=== PATIENT | female | born 1955 | race Caucasian/White ===

== ENCOUNTER 2017-09-03 11:39 | Emergency (ER) | payer OTHER ==
[~2017-09-03] VITALS: Ht 160 cm; Wt 72.0 kg
[2017-09-03 11:49] VITALS: BP 134/88
[2017-09-03] MEDS ORDERED: CYCL-1 PO (12:43)
== END 2017-09-03 13:21 | disposition home or self-care (01) ==
LOC: ER 11:39
DX: M75.21 Bicipital tendinitis, right shoulder (principal); M75.101 Unspecified rotator cuff tear or rupture of right shoulder, not specified as traumatic; Z79.899 Other long term (current) drug therapy
CPT/HCPCS: 29105; 99283; L3650

== ENCOUNTER 2017-09-06 14:15 | Outpatient (CLI) | payer OTHER ==
[~2017-09-06 14:15] MED LIST: CYCL-1 PO
[2017-09-06 14:47] VITALS: BP 132/76
== END 2017-09-06 15:22 | disposition home or self-care (01) ==
LOC: ORTHO 14:15
PROVIDERS: ATTEND Nurse Practitioner Family
DX: M75.41 Impingement syndrome of right shoulder (principal); G89.29 Other chronic pain; Z87.891 Personal history of nicotine dependence
CPT/HCPCS: 73030; 99213

== ENCOUNTER 2017-10-24 09:37 | Outpatient (CLI) | payer OTHER | END 2017-10-24 23:59 | disposition home or self-care (01) | LOC: RAD 09:37 | PROVIDERS: ATTEND Orthopaedic Surgery | DX: S46.011A Strain of muscle(s) and tendon(s) of the rotator cuff of right shoulder, initial encounter (principal); M25.411 Effusion, right shoulder; Z87.891 Personal history of nicotine dependence; X58.XXXA Exposure to other specified factors, initial encounter; Y93.89 Activity, other specified; Y92.89 Other specified places as the place of occurrence of the external cause; Y99.8 Other external cause status | CPT/HCPCS: 73221 ==